=== PATIENT | female | born 1960 | race Caucasian/White ===

== ENCOUNTER → 2016-05-24 | Outpatient (CLI) | payer OTHER | LOC: HEART 5 04-26 08:00 | DX: M79.606 Pain in leg, unspecified (principal); R93.7 Abnormal findings on diagnostic imaging of other parts of musculoskeletal system; R42 Dizziness and giddiness | CPT/HCPCS: 93925 ==

== ENCOUNTER → 2016-06-15 | Outpatient (CLI) | payer OTHER | LOC: RAD 13:24 | DX: S79.912A Unspecified injury of left hip, initial encounter (principal); W19.XXXA Unspecified fall, initial encounter | CPT/HCPCS: 73502; 73552; 73590 ==

== ENCOUNTER 2016-06-17 13:23 | Emergency (ER) | payer OTHER ==
[2016-06-17 14:33] LABS: HEMOGLOBIN 12.5 gm/dl (12.3-15.3); RED BLOOD COUNT 4.49 M/UL (4.00-5.10); WHITE BLOOD COUNT 9.4 K/UL (4.5-11.0)
[2016-06-17 14:45] LABS: BUN/CREATININE RATIO 17 (0-10)
== END 2016-06-17 16:20 | disposition home or self-care (01) ==
LOC: ER1 13:23
PROVIDERS: Physician Assistant
DX: L03.116 Cellulitis of left lower limb (principal); R21 Rash and other nonspecific skin eruption; J45.909 Unspecified asthma, uncomplicated; J44.9 Chronic obstructive pulmonary disease, unspecified; F17.200 Nicotine dependence, unspecified, uncomplicated; Z88.0 Allergy status to penicillin; Z88.5 Allergy status to narcotic agent; Z79.899 Other long term (current) drug therapy
CPT/HCPCS: 36415; 80053; 85025; 87040; 96365; 99283; J0875; Q0177

== ENCOUNTER → 2016-07-24 | Outpatient (CLI) | payer OTHER | LOC: RAD 09:52 | DX: M25.562 Pain in left knee (principal) | CPT/HCPCS: 73562 ==

== ENCOUNTER → 2020-10-14 | Outpatient (CLI) | payer OTHER ==
[~2020-10-14] MED LIST: ANTIVERT 12.512.5 MG PO; ANTIVERT 25MG T25 MG PO; BACLOFEN10 MG PO; BENTYL 10MG CAP10 MG PO; BREO ELLIPTA 11 EACH INH; BREO ELLIPTA 21 EACH INH; CLARITIN 10MG T10 MG PO; CLARITIN10 M2 PO; CLEOCIN HCL300 MG PO; COMBIVENT0.074 GM/I PO; CYANOCOBAL1000 MCG/1 INJ; DALIRESP500 MCG PO; DULERA 100 MCG8.8 GM INH; DYMISTA NASAL S23 GM; ECOTRIN81 MG PO; ELIQUIS 2.5 MG2.5 MG PO; ELIQUIS2.5 MG PO; ENALAPRIL MALEA20 MG PO; ENDOCET 7.5-321 EACH PO; FERROUS SULFAT325 MG PO; FEXOFENADINE HC60 MG PO; FLEXERIL 10 MG10 MG PO; FLONASE 0.05% N16 GM; GLUCOPHAGE 500500 MG PO; HYDROXYZINE HCL25 MG PO; IBUPROFEN800 MG PO; IPRAT-ALBUT 0.5-3 ML NEB; K-TAB ER10 MEQ PO; KENALOG CR 0.0215 GM TD; LASIX TAB 20 MG20 MG PO; LOVENOX SY40 MG/0.4 INJ; MECLIZINE HCL12.5 MG PO; METHOCARBAMOL750 MG PO; METOPROLOL TART25 MG PO; MONTELUKAST SOD10 MG PO; NORCO 5-325 TA1 EACH PO; NORCO 7.5-3251 EACH PO; NORVASC 5 MG TAB5 MG PO; NORVASC10 MG PO; OMEPRAZOLE40 MG PO; OMNICEF 300 MG300 MG PO; OYSTER SHELL 21 EACH PO; PERCOCET 10-321 EACH PO; PERCOCET 5/325 T1 EA PO; PREDNISONE20 MG PO; QUETIAPINE FUM400 MG PO; ROBAXIN 750 MG750 MG PO; SEROQUEL400 MG PO; SINGULAIR10 MG PO; SPIRIVA18 MCG INH; VALIUM 5 MG TAB5 MG PO; VENTOLIN HFA 66.7 GM PO; VIBRAMYCIN100 MG PO; VIIBRYD40 MG PO; VISTARIL 25 MG25 MG PO; VISTARIL25 MG PO; VITAMIN B-1000 MCG/1 PO; VITAMIN B-1000 MCG/M IM; VITAMIN C500 M1 PO; VITAMIN D 11000 UNIT PO; VITAMIN D PO; VITAMIN D2000 UNIT PO; VITAMIN D31250 MCG PO; Voltaren Gel 1 % TOP; ZOCOR20 MG PO
[2020-10-14 11:28] LABS: HEMOGLOBIN 14.5 gm/dl (12.3-15.3); RED BLOOD COUNT 5.06 M/UL (4.00-5.10); WHITE BLOOD COUNT 11.1 K/UL (4.5-11.0)
[2020-10-14 11:44] LABS: BUN/CREATININE RATIO 24 (0-10)
== END ==
LOC: EDSTATUS 10:00 → OPSV2 10:00
PROVIDERS: Orthopaedic Surgery
DX: Z01.818 Encounter for other preprocedural examination (principal); T84.9XXA Unspecified complication of internal orthopedic prosthetic device, implant and graft, initial encounter; Z88.0 Allergy status to penicillin; Z88.8 Allergy status to other drugs, medicaments and biological substances; Z88.6 Allergy status to analgesic agent
CPT/HCPCS: 80048; 85025; 85652; 86140; 87081; 93005

== ENCOUNTER → 2020-10-27 | Outpatient (CLI) | payer OTHER ==
[2020-10-27 15:23] LABS: BUN/CREATININE RATIO 18 (0-10)
== END ==
LOC: LAB 13:42
PROVIDERS: Orthopaedic Surgery
DX: Z01.812 Encounter for preprocedural laboratory examination (principal)
CPT/HCPCS: 36415; 80048; 86850; 86900; 86901

== ENCOUNTER 2020-10-28 08:34 | Day surgery (SDC) | payer OTHER ==
[~2020-10-28] VITALS: Ht 170.2 cm; Wt 108.4 kg
[~2020-10-28 08:34] MED LIST changes: -ENDOCET 7.5-321 EACH PO; -GLUCOPHAGE 500500 MG PO
[2020-10-28] MEDS ORDERED: ENDOCET 7.5-321 EACH PO (12:33)
[2020-10-28] MEDS ORDERED: ELIQUIS2.5 MG PO (12:33)
[2020-10-29 02:30] LABS: HEMOGLOBIN 12.7 gm/dl (12.3-15.3); RED BLOOD COUNT 4.49 M/UL (4.00-5.10); WHITE BLOOD COUNT 12.8 K/UL (4.5-11.0)
[2020-10-29 02:47] LABS: BUN/CREATININE RATIO 15 (0-10)
[2020-10-29] MEDS ORDERED: GLUCOPHAGE 500500 MG PO (14:30)
== END 2020-10-29 15:26 | disposition home or self-care (01) ==
LOC: OR 08:34 → M/S 15:37 → OR 10-29 15:26
PROVIDERS: Orthopaedic Surgery
DX: T84.093A Other mechanical complication of internal left knee prosthesis, initial encounter (principal); I10 Essential (primary) hypertension; E78.5 Hyperlipidemia, unspecified; J96.11 Chronic respiratory failure with hypoxia; J44.9 Chronic obstructive pulmonary disease, unspecified; K21.9 Gastro-esophageal reflux disease without esophagitis; Z88.0 Allergy status to penicillin; Z88.6 Allergy status to analgesic agent; Z88.8 Allergy status to other drugs, medicaments and biological substances; M21.062 Valgus deformity, not elsewhere classified, left knee; E66.01 Morbid (severe) obesity due to excess calories; F41.9 Anxiety disorder, unspecified; F32.9 Major depressive disorder, single episode, unspecified; Z20.822 Contact with and (suspected) exposure to COVID-19; F43.10 Post-traumatic stress disorder, unspecified
CPT/HCPCS: 36415; 73560; 80048; 83036; 85027; 87070; 87205; 94640; 94664; 94760; 97116-GP-CQ; 97162; 97166; 97535; C1776; J0171; J0690; J1100; J1644; J2001; J2270; J2405; J2704; J2795; J3370; J7030; J7050; J7120